=== PATIENT | male | born 1970 | race African-American/Black ===

== ENCOUNTER 2024-07-30 18:57 | Inpatient (IN) | payer BC ==
[~2024-07-30] VITALS: Ht 180.3 cm; Wt 87.3 kg
[2024-07-30] MEDS ORDERED: SIMV10TA20 PO (20:13)
[2024-07-30] MEDS ORDERED: INSU100I51 SC (20:13)
[2024-07-30 20:14] VITALS: PULSE 79; RESP 14; O2SAT 95
[2024-07-30 21:00] VITALS: BP 149/86; PULSE 79; RESP 14; TEMP 97.9; O2SAT 95
[2024-07-30] MEDS ORDERED: MORPHINE SULFATE INJ 2 MG/ml SYRG IV PRN (21:00)
[2024-07-30] MEDS ORDERED: NITROGLYCERIN 0.4 MG SL TAB SL PRN (21:00)
[2024-07-30] MEDS ORDERED: MAALOX PLUS or MAALOX 30 ML GT PRN (21:30)
--- NOTE | 2024-07-30 21:42 | DVHHP2 ---
Admitting Diagnosis: RUQ abdominal pains Patient Family History: Patient reports no known family medical history. Home Meds Reported Medications Simvastatin (Simvastatin) 10 Mg Tab, 1 TAB PO DAILY, #90 TAB 3 Refills 07/30/24 Insulin Aspart (Insulin Aspart Flexpen) 100 Unit/Ml Inj, 100 UNIT SC, INJ 07/30/24 Current Medications Current Medications Medications (Trade) Dose Ordered Sig/Patricia Route PRN Reason Start Time Stop Time Status Last Admin Nitroglycerin (Ntrostat Sublingual) 0.4 mg Q5MINP PRN SL FOR CHEST PAIN 07/30/24 21:00 UNV Morphine Sulfate 2 mg Q30M PRN IV FOR CHEST PAIN 07/30/24 21:00 UNV Diagnostic Test (Pha) (Accu-Chek Comfort Curve T) 1 strip ACHS 07/30/24 22:00 UNV Hydromorphone HCl (Dilaudid Injection) 0.8 mg Q4HP PRN IV SEVERE PAIN (7-10 PAIN SCALE) 07/30/24 21:30 UNV Hydromorphone HCl (Dilaudid Injection) 0.5 mg Q4HP PRN IV Mod severe (3-7/1 PAIN SCALE) 07/30/24 21:30 UNV Cefepime HCl 50 ml @ 12.5 mls/hr Q12HR IV 07/30/24 22:00 UNV Al Hydrox/Mg Hydrox/Simethicone (Maalox Plus) 30 ml Q4HP PRN GT FOR STOMACH DISTRESS 07/30/24 21:30 UNV Sodium Chloride 1,000 ml @ 60 mls/hr [id number] IV 07/30/24 21:30 UNV Vital Signs Vital Signs Date Time Temp Pulse Resp B/P (MAP) Pulse Ox O2 Delivery O2 Flow Rate FiO2 07/30/24 21:00 97.9 79 14 149/86 (107) 95 97.9 ARIADNA CORDOVA MD Jul 30, 2024 21:42
[2024-07-30] MEDS ORDERED: ONDANSETRON HCL 4 MG/2 ML VIAL IV PRN (21:45)
[2024-07-30 22:11] LABS: Basophils % (auto) 0.8 % (0.0-2.0); Eosinophils # (auto) 0.1 10 ^3/uL (0-0.8); Lymphocytes # (auto) 2.9 10 ^3/uL (0.4-5.4); Monocytes # (auto) 0.6 10 ^3/uL (0-1.3); Neutrophils # (auto) 2.5 10 ^3/uL (1.6-8.6); Nucleated Red Blood Cells % 0.1 %; Platelet Count (auto) 240 10^3/uL (140-450); Red Cell Distribution Width 16.2 % (11.8-14.3)
[2024-07-30 22:13] LABS: Basophils # (auto) 0 10 ^3/uL (0-0.2); Eosinophils % (auto) 1.9 % (0.0-7.0); Hematocrit 39.8 % (41.0-53.0); Hemoglobin 12.5 g/dL (13.5-17.5); Lymphocytes % (auto) 47.5 % (10.0-50.0); Mean Corpuscular Hemoglobin 20.1 pg (28.0-32.0); Mean Corpuscular Hgb Conc. 31.5 g/dL (32.0-36.0); Mean Corpuscular Volume 63.6 fL (80.0-100.0); Monocytes % (auto) 9.1 % (0.0-12.0); Neutrophils % (auto) 40.7 % (37.0-80.0); Red Blood Cells 6.25 10^6/uL (4.5-5.90)
[2024-07-30 22:28] LABS: Phosphorus 4.2 mg/dL (2.4-5.1)
[2024-07-30 22:29] LABS: Alanine Aminotransferase 29 U/L (7-40); Albumin 4.5 g/dL (3.2-4.8); Alkaline Phosphatase 51 U/L (46-116); Anion Gap 8 (5-15); Aspartate Aminotransferase 24 U/L (<34); BUN/Creatinine Ratio 17.2 (10.0-20.0); Bilirubin, Total 0.4 mg/dL (0.2-1.0); Blood Urea Nitrogen 16 mg/dL (9-23); Carbon Dioxide 29 mmol/L (20-31); Magnesium 2.3 mg/dL (1.6-2.6); Potassium 4.1 mmol/L (3.5-5.1); Sodium 144 mmol/L (136-145); Total Protein 6.7 g/dL (5.7-8.2)
[2024-07-30 22:32] LABS: Chloride 107 mmol/L (98-107); Glucose 141 mg/dL (74-106)
[2024-07-30] MEDS: ACCU-CHEK COMFORT CURVE STRIP VI SCH (22:50)
--- NOTE | 2024-07-30 22:52 | DVH ---
ABDOMINAL ULTRASOUND CLINICAL HISTORY: r/o cholelithiasis right upper quadrant pain TECHNIQUE: Multiple grayscale and color Doppler ultrasound images were obtained of the abdomen. WID: COMPARISON: None FINDINGS: Liver and Biliary System: Homogeneous echotexture, normal size measuring 14.4 cm. No focal hepatic observations. No intrahepatic bile duct dilatation. The common duct measures 0.5 cm at the naya h epatis. The gallbladder is normal caliber without wall thickening. Pancreas: Visualized portions are unremarkable. Kidneys: The right kidney is 11.1 cm . No hydronephrosis, increased echogenicity, shadowing stone, or focal lesion. IMPRESSION: No acute cholecystitis or biliary ductal dilatation.
[2024-07-30] MEDS: HYDROmorphone HCL 2 MG/ML VL/or syr IV PRN (23:15)
[2024-07-30] MEDS: SOD CHL 0.45% 1,000 ML IV SCH (23:30)
[2024-07-30] MEDS: PANTOPRAZOLE 80 MG in SODIUM CHL 0.9% 100 ML IV ONE (23:40)
[2024-07-30] MEDS: ZOLPIDEM TARTRATE 5 MG TAB PO ONE (23:43)
[2024-07-30] MEDS: PANTOPRAZOLE 40mg/50ML NS AE 100 ML IV ONE (23:49)
[2024-07-31] VITALS (10 sets, daily range): BP systolic 135–152; BP diastolic 82–93; PULSE 70–83; RESP 13–19; TEMP 97.5–98.3; O2SAT 96–100
[2024-07-31] MEDS: CEFEPIME 1GM/ 50ML 50 ML IV SCH (00:07)
[2024-07-31 06:27] LABS: Basophils # (auto) 0 10 ^3/uL (0-0.2); Eosinophils # (auto) 0.2 10 ^3/uL (0-0.8); Lymphocytes % (auto) 48.4 % (10.0-50.0); Monocytes # (auto) 0.5 10 ^3/uL (0-1.3); Nucleated Red Blood Cells % 0.1 %
[2024-07-31 06:30] LABS: Basophils % (auto) 0.6 % (0.0-2.0); Hematocrit 39.5 % (41.0-53.0); Hemoglobin 12.5 g/dL (13.5-17.5); Lymphocytes # (auto) 2.7 10 ^3/uL (0.4-5.4); Mean Corpuscular Hemoglobin 20.2 pg (28.0-32.0); Mean Corpuscular Hgb Conc. 31.7 g/dL (32.0-36.0); Mean Corpuscular Volume 63.8 fL (80.0-100.0); Monocytes % (auto) 9.5 % (0.0-12.0); Neutrophils # (auto) 2.1 10 ^3/uL (1.6-8.6); Neutrophils % (auto) 38.5 % (37.0-80.0); Platelet Count (auto) 219 10^3/uL (140-450); Red Blood Cells 6.19 10^6/uL (4.5-5.90); Red Cell Distribution Width 16.2 % (11.8-14.3); White Blood Cell 5.6 10^3/uL (4.4-10.8)
[2024-07-31 06:51] LABS: Alanine Aminotransferase 30 U/L (7-40); Albumin 4.2 g/dL (3.2-4.8); Alkaline Phosphatase 49 U/L (46-116); Anion Gap 9 (5-15); Aspartate Aminotransferase 22 U/L (<34); BUN/Creatinine Ratio 14.7 (10.0-20.0); Blood Urea Nitrogen 15 mg/dL (9-23); Calcium 9.2 mg/dL (8.7-10.4); Carbon Dioxide 28 mmol/L (20-31); Chloride 105 mmol/L (98-107); Glucose 90 mg/dL (74-106); Potassium 4.2 mmol/L (3.5-5.1); Sodium 142 mmol/L (136-145); Total Protein 6.5 g/dL (5.7-8.2)
[2024-07-31 06:52] LABS: Bilirubin, Total 0.5 mg/dL (0.2-1.0)
[2024-07-31 07:03] LABS: Triglycerides 76 mg/dL (< 150)
[2024-07-31 07:04] LABS: LDL Cholesterol 58 mg/dL (< 100)
[2024-07-31 07:05] LABS: Cholesterol 100 mg/dL (< 200)
[2024-07-31 07:07] LABS: HDL Cholesterol 26 mg/dL (40-59)
[2024-07-31 08:33] LABS: Urine Bacteria None Seen /hpf (None Seen)
[2024-07-31 08:45] LABS: Urine Blood Negative /uL (Negative); Urine Clarity Clear (Clear); Urine Color Yellow (Yellow); Urine Protein, UAD Negative (Negative); Urine Specific Gravity 1.022 (1.001-1.035); Urine Squamous Epithelial Cell FEW /hpf (<5); Urine Urobilinogen Normal (Negative)
[2024-07-31] MEDS ORDERED: NALOXONE HCL 0.4 MG/ML VIAL ONE (09:21)
[2024-07-31] MEDS ORDERED: FLUMAZENIL 0.1 MG/ML INJ 10ML MDV IV ONE (09:22)
[2024-07-31] MEDS ORDERED: SIMETHICONE 40 MG/0.6 ML ORAL DROP ONE (09:22)
[2024-07-31] MEDS ORDERED: SODIUM CHLORIDE LOCK 10 ML ONE (09:22)
[2024-07-31] MEDS ORDERED: diphenhdrAMINE HCL 50 MG/1 ML VL ONE (09:23)
[2024-07-31] MEDS: LIDOCAINE VISCOUS 2% 15ML UD ONE (09:35)
--- NOTE | 2024-07-31 09:35 | DVH ---
EXAMINATION: XY R RIB XRAY INDICATION: R side rib cage pains COMPARISON: None TECHNIQUE: Frontal view of the chest and 4 views of the right ribs history FINDINGS: No focal consolidation, pleural effusion or significant pneumothorax. Normal cardiomediastinal silhou ette. No displaced right rib fracture. IMPRESSION: No acute cardiopulmonary disease. No displaced right rib fracture.
[2024-07-31] MEDS: MIDAZOLAM HCL 5 MG/ML-1ML VIAL ONE (09:38)
[2024-07-31] MEDS: fentaNYL CITRATE 100 MCG/2 ML VL ONE (09:38)
--- NOTE | 2024-07-31 10:01 | DVHINCON2 ---
Date of service: Jul 31, [address] westfall Reason for Consultation Abdominal pain right upper quadrant nausea anorexia history of anemia in the past No hematemesis or melena Had some dark stools in the past but none Was on iron pills in the past History of Present Illness 54-year-old Male Abdominal pain right upper quadrant nausea anorexia history of anemia in the past No hematemesis or melena Had some dark stools in the past but none Was on iron pills in the past Past Medical History History of diabetes History of Pancreatitis in the past Past Surgical History None Family History: Patient reports no known family medical history. Family History Noncontributory Social History Denies smoking or drinking Allergies: Coded Allergies: No Known Drug Allergy (Verified Allergy, Unknown, 07/30/24) Home Meds Reported Medications Simvastatin (Simvastatin) 10 Mg Tab, 1 TAB PO DAILY, #90 TAB 3 Refills 07/30/24 Insulin Aspart (Insulin Aspart Flexpen) 100 Unit/Ml Inj, 100 UNIT SC, INJ 07/30/24 Current Medications Current Medications Medications (Trade) Dose Ordered Sig/Patricia Route PRN Reason Start Time Stop Time Status Last Admin Nitroglycerin (Ntrostat Sublingual) 0.4 mg Q5MINP PRN SL FOR CHEST PAIN 07/30/24 21:00 Morphine Sulfate 2 mg Q30M PRN IV FOR CHEST PAIN 07/30/24 21:00 Diagnostic Test (Pha) (Accu-Chek Comfort Curve T) 1 strip ACHS 07/30/24 22:00 07/31/24 06:19 Hydromorphone HCl (Dilaudid Injection) 0.8 mg Q4HP PRN IV SEVERE PAIN (7-10 PAIN SCALE) 07/30/24 21:30 Hydromorphone HCl (Dilaudid Injection) 0.5 mg Q4HP PRN IV Mod severe (3-7/1 PAIN SCALE) 07/30/24 21:30 07/31/24 09:03 Cefepime HCl 50 ml @ 12.5 mls/hr Q12HR IV 07/30/24 22:00 07/31/24 00:07 Al Hydrox/Mg Hydrox/Simethicone (Maalox Plus) 30 ml Q4HP PRN GT FOR STOMACH DISTRESS 07/30/24 21:30 Sodium Chloride 1,000 ml @ 60 mls/hr [id number] IV 07/30/24:30 07/30/24 23:30 Ondansetron HCl (Zofran) 4 mg Q6HPRN PRN IV N/V/Hiccough 07/30/24 21:45 Zolpidem Tartrate (Ambien) 10 mg HSPRN PRN PO FOR INSOMNIA 07/30/24 21:45 Review of Systems Noncontributory Vital Signs Vital Signs Date Time Temp Pulse Resp B/P (MAP) Pulse Ox O2 Delivery O2 Flow Rate FiO2 07/31/24 09:03 70 18 152/84 07/31/24 09:00 98.0 96 98.0 07/30/24 20:14 Room Air* 0 21 Physical Exam Moderately built and nourished male in no acute distress Vital signs stable HEENT examination no pallor no icterus Neck is supple no lymphadenopathy or thyromegaly Chest bilaterally symmetrical lungs are clear Cardiovascular unremarkable Abdomen is soft tenderness in the right upper quadrant and epigastrium mildly No rigidity no guarding no masses Bowel sounds eriberto Extremities no edema Neuro grossly intact Labs/Diagnostic Data Labs Test 07/31/24 07:40 07/31/24 05:38 07/31/24 00:56 07/30/24 22:54 Range/Units Urine Color Yellow Yellow Urine Clarity Clear Clear Urine pH 7.0 5.0-9.0 Urine Specific [place] 1.022 1.001-1.035 Urine Protein Negative Negative Urine Ketones Negative Negative Urine Blood Negative Negative /uL Urine Nitrite Negative Negative Urine Bilirubin Negative Negative Urine Urobilinogen Normal Negative mg/dL Urine Leukocyte Esterase Negative Negative /uL Urine RBC None seen 0 - 3 /hpf Urine Microscopic WBC 0-3 /HPF Urine Squamous Epithelial Cells Few <5 /hpf Urine Bacteria None seen None Seen /hpf Urine Glucose 4+ H Normal mg/dL White Blood Count 5.6 4.4-10.8 10^3/uL Red Blood Count 6.19 H 4.5-5.90 10^6/uL Hemoglobin 12.5 L 13.5-17.5 g/dL Hematocrit 39.5 L 41.0-53.0 % Mean Corpuscular Volume 63.8 L 80.0-100.0 fL Mean Corpuscular Hemoglobin 20.2 L 28.0-32.0 pg Mean Corpuscular Hemoglobin Concent 31.7 L 32.0-36.0 g/dL Red Cell Distribution Width 16.2 H 11.8-14.3 % Platelet Count 219 140-450 10^3/uL Mean Platelet Volume 8.5 6.9-10.8 fL Neutrophils (%) (Auto) 38.5 37.0-80.0 % Lymphocytes (%) (Auto) 48.4 10.0-50.0 % Monocytes (%) (Auto) 9.5 0.0-12.0 % Eosinophils (%) (Auto) 3.0 0.0-7.0 % Basophils (%) (Auto) 0.6 0.0-2.0 % Neutrophils # (Auto) 2.1 1.6-8.6 10 ^3/uL Lymphocytes # (Auto) 2.7 0.4-5.4 10 ^3/uL Monocytes # (Auto) 0.5 0-1.3 10 ^3/uL Eosinophils # (Auto) 0.2 0-0.8 10 ^3/uL Basophils # (Auto) 0 0-0.2 10 ^3/uL Nucleated Red Blood Cells 0.1 % Sodium Level 142 136-145 mmol/L Potassium Level 4.2 3.5-5.1 mmol/L Chloride Level 105 98-107 mmol/L Carbon Dioxide Level 28 20-31 mmol/L Anion Gap 9 5-15 Blood Urea Nitrogen 15 9-23 mg/dL Creatinine 1.02 0.700-1.30 mg/dL Glomerular Filtration Rate Calc 87 >90 mL/min BUN/Creatinine Ratio 14.7 10.0-20.0 Serum Glucose 90 74-106 mg/dL Calcium Level 9.2 8.7-10.4 mg/dL Total Bilirubin 0.5 0.2-1.0 mg/dL Aspartate Amino Transferase (AST) 22 <34 U/L Alanine Aminotransferase (ALT) 30 7-40 U/L Alkaline Phosphatase 49 46-116 U/L Total Protein 6.5 5.7-8.2 g/dL Albumin 4.2 3.2-4.8 g/dL Triglycerides Level 76 < 150 mg/dL Cholesterol Level 100 < 200 mg/dL LDL Cholesterol 58 < 100 mg/dL HDL Cholesterol 26 L 40-59 mg/dL Troponin I High Sensitivity 3 L </=54 ng/L POC Glucose 162 H 70-106 mg/dl Test 07/30/24 21:41 Range/Units D-Dimer, Quantitative < 0.19 0.0-0.49 mg/L FEU Hemoglobin A1c 6.9 H <5.7 % A1C Phosphorus Level 4.2 2.4-5.1 mg/dL Magnesium Level 2.3 1.6-2.6 mg/dL Amylase Level 64 30-118 U/L Lipase 14 12-53 U/L Assessment 54-year-old male With complaints of abdominal pain in the right upper quadrant nausea anorexia History of diabetes Labs unremarkable except for slightly increased glucose, white count hemoglobin LFTs and lipase normal Ultrasound showed no gross abnormalities of the gallbladder Clinical impression Patient with diabetes with right upper quadrant pain undetermined etiology no history of any trauma or other pathology Gallbladder studies negative for stones Possibility of an ulcer disease or other pathology can not be excluded Colon Lesion also could be in the differential diagnosis though no much lower GI symptoms at this time Acalculous cholecystitis also has to be ruled out Plan/Recommendation Recommend EGD evaluation to rule out any ulcers or other pathology If EGD unremarkable we will also do HIDA scan to ensure there was no acalculous cholecystitis May also need a colon evaluation and CT scan abdomen if not done recently to evaluate for the etiology of the pain Thank you Dr. Pearson Plan discussed with: Patient TAHMINA PEARSON MD Jul 31, 2024 10:00
--- NOTE | 2024-07-31 10:11 | DVHOP2 ---
Operative Report DATE OF PROCEDURE: 07/31/24 INDICATIONS FOR THE PROCEDURE: Abdominal pain nausea heartburn anorexia history of diabetes PROCEDURE PERFORMED: 1. Esophagogastroduodenoscopy biopsy POSTOPERATIVE DIAGNOSIS: Small hiatal hernia Mild esophagitis LA classification C No strictures no ulcers no varices no bleeding seen Mild gastritis in the antrum Gastroparesis with gastric stasis and small gastric bezoar INFORMED CONSENT: The risks and benefits and alternatives were explained to the patient and informed consent was obtained. PROCEDURE IN DETAIL: The patient was kept NPO after midnight. In the endoscopy room, he was given IV fentanyl family and Versed, 3 mg titrated slowly to get him sedated. Olympus gastroscope was passed through the oropharynx into the stomach and the duodenum, and the findings were as follows. Esophagus: 1 Cm hiatal hernia Esophagitis classification C No Esophageal varices No Esophageal stricture Stomach: Fundus: Gastroparesis with gastric stasis early gastric bezoar occupying the fundus and upper body Body and antrum mild antral gastritis biopsies taken to ensure there was no H pylori or other pathology Pylorus normal Duodenum Unremarkable but biopsies taken to ensure there is no other pathology like celiac disease because of the pain in the right upper quadrant Endoscopic impression Small hiatal hernia Mild esophagitis LA classification C No strictures no ulcers no varices no bleeding seen Mild gastritis in the antrum Gastroparesis with gastric stasis and small gastric bezoar Suggestions Await Biopsy results Six small frequent meals Monitor the blood sugars closely maintain well A1c and the the sugars HIDA scan to rule out any acalculous cholecystitis because of the right upper quadrant pain Abdomen MRI especially with a history of pancreatitis in the past Stool for occult blood Depending on the MRI and HIDA scan may need further evaluation including colon evaluation as necessary Thank you Dr. Tavares for asking me to take part in the care of this pleasant patient TAHMINA Martinez MD Jul 31, 2024 10:11
[2024-07-31] MEDS: HYDROmorphone HCL 2 MG/ML VL/or syr IV PRN (12:45)
--- NOTE | 2024-07-31 13:01 | DVH ---
PROCEDURE: MRI MRI ABDOMEN NO CONTRAST Indication: RIGHT ABDOMINAL PAIN COMPARISON: None TECHNIQUE: Multiplanar multisequence images of the abdomen are obtained. FINDINGS: Tiny bilateral pleural effusions. Adrenal glands, spleen unremarkable in shape. No evidence for cholelithiasis. No T2 hyperintense lesi ons in the liver. The left kidney demonstrates [id number] left hydroureteronephrosis. Pancreatic parenchymal atrophy with ductal dilatation up to 11 mm common bile duct visually nondilate d measures approximately 2 mm. Stomach is moderately distended. Imaged small bowel loops normal in caliber. IMPRESSION: [id number] left hydroureteronephrosis. Recommend dedicated CT abdomen pelvis with and without contrast to evaluate. Severe parenchymal atrophy with pancreatic ductal dilatation up to 11 mm, possibly secondary to ex va cuo dilatation. Correlate with risk factors and lab values to exclude a nonobstructing underlying pa ncreatic process. Tiny bilateral pleural effusions. Other findings as described.
--- NOTE | 2024-07-31 15:17 | DVHPN2 ---
Progress Note - Dictate Date Seen: Jul 31, 2024 Subjective EGD- gastroparesis US abdomen- no cholelithiasis MRI- hydronephrosis refer to urologist vital signs Vital Sign Date Time Temp Pulse Resp B/P (MAP) Pulse Ox O2 Delivery O2 Flow Rate FiO2 07/31/24 13:15 76 19 148/89 07/31/24 10:30 97 07/31/24 09:55 Mask 3.0 98 07/31/24 09:55 97.1 97.1 Total Intake and Output 07/30/24 07/30/24 07/31/24 15:00 23:00 07:00 Intake Total 0 ml Balance 0 ml medications Current Medications Medications Dose Ordered Sig/Patricia Route Start Time Stop Time Status Last Admin Dose Admin Nitroglycerin 0.4 mg Q5MINP PRN SL 07/30/24 21:00 Morphine Sulfate 2 mg Q30M PRN IV 07/30/24 21:00 Diagnostic Test (Pha) 1 strip ACHS 07/30/24 22:00 07/31/24 11:50 1 STRIP Hydromorphone HCl 0.8 mg Q4HP PRN IV 07/30/24 21:30 07/31/24 12:45 0.8 MG Hydromorphone HCl 0.5 mg Q4HP PRN IV 07/30/24 21:30 07/31/24 09:03 0.5 MG Cefepime HCl 50 ml @ 12.5 mls/hr Q12HR IV 07/30/24 22:00 07/31/24 12:37 12.5 MLS/HR Al Hydrox/Mg Hydrox/Simethicone 30 ml Q4HP PRN GT 07/30/24 21:30 Sodium Chloride 1,000 ml @ 60 mls/hr [id number] IV 07/30/24 21:30 07/30/24 23:30 60 MLS/HR Ondansetron HCl 4 mg Q6HPRN PRN IV 07/30/24 21:45 Zolpidem Tartrate 10 mg HSPRN PRN PO 07/30/24 21:45 laboratory and microbiology Laboratory Tests 07/31/24 05:38 Test 07/31/24 05:38 Range/Units Serum Glucose 90 74-106 mg/dL Problem List L sided hydronephrosis Gastroparesis Assessment/Plan Refer to Dr. Larry starr- d/w ARIADNA Sepulveda MD Jul 31, 2024 15:17
--- NOTE | 2024-07-31 17:19 | DVHINCON2 ---
Date of service: Jul 31, [address] Tavares Reason for Consultation Left hydronephrosis History of Present Illness History Source: Patient, RN Notes, MD Notes Exam Limitations: No limitations HPI 54 year old male admitted to hospital for RUQ pain. MRI showed left moderate hydronephrosis. Bladder and distal ureters not visualized on MRI exam, therefore CT A/P ordered, which shows persistent right sided hydro. No obvious calculi. Bladder is distended, awaiting radiology report. Patient denies flank pain, fever, nausea, vomiting. No prior history of urinary difficulties or urinary disease. Patient was examined in 216b with family at bedside. Home Meds Reported Medications Simvastatin (Simvastatin) 10 Mg Tab, 1 TAB PO DAILY, #90 TAB 3 Refills 07/30/24 Insulin Aspart (Insulin Aspart Flexpen) 100 Unit/Ml Inj, 100 UNIT SC, INJ 07/30/24 Past Medical History Patient Family History: Patient reports no known family medical history. Review of Systems Constitutional: No symptom reported Ears, Nose, & Throat: No symptom reported Eyes: No symptom reported Pulmonary/Respiratory: No symptom reported Cardiovascular: No symptom reported Gastrointestinal: No symptom reported Genitourinary: No symptom reported Musculoskeletal: No symptom reported Skin: No symptom reported Psychiatric: No symptom reported Endocrine: No symptom reported Hemotologic/Lymphatic: No symptom reported H&P Exam Vital Signs Vital Signs Date Time Temp Pulse Resp B/P (MAP) Pulse Ox O2 Delivery O2 Flow Rate FiO2 07/31/24 13:15 76 19 148/89 07/31/24 13:00 97.8 97 97.8 07/31/24 09:55 Mask 3.0 98 General Appeara: Well developed, Well nourished, Normal Appearance Head Exam: Normal inspection Neuro/Mental St: Alert, Oriented Appearance: Appropriate appearance, Appropriate insight Eye contact/ Speech: Cooperative, Good eye contact, Normal speech Skin Exam: Normal inspection, Normal color, Warm/dry Labs/Xrays [id number] [facility] [address] Ph: [phone] DIAGNOSTIC IMAGING Diagnostic Imaging Report : [id number] Signed PATIENT: AUSTYN CLEMENTS ACCT: [id number] UNIT: [id number] : 1970 LOC[facility]GE / SEX: 54 / M ADM STATUS: ADM IN SERVICE 1017 ORDERING PHYSICIAN: TAHMINA NICHOLS MD PROCEDURE(s): MABL - MRI ABDOMEN NO CONTRAST REASON: RIGHT ABDOMINAL PAIN ORDER NUMBER(s): [id number], ACCESSION NUMBER(s): [id number] PROCEDURE: MRI MRI ABDOMEN NO CONTRAST Indication: RIGHT ABDOMINAL PAIN COMPARISON: None TECHNIQUE: Multiplanar multisequence images of the abdomen are obtained. FINDINGS: Tiny bilateral pleural effusions. Adrenal glands, spleen unremarkable in shape. No evidence for cholelithiasis. No T2 hyperintense lesions in the liver. The left kidney demonstrates [id number] left hydroureteronephrosis. Pancreatic parenchymal atrophy with ductal dilatation up to 11 mm common bile duct visually nondilated measures approximately 2 mm. Stomach is moderately distended. Imaged small bowel loops normal in caliber. IMPRESSION: [id number] left hydroureteronephrosis. Recommend dedicated CT abdomen pelvis with and without contrast to evaluate. Severe parenchymal atrophy with pancreatic ductal dilatation up to 11 mm, possibly secondary to ex vacuo dilatation. Correlate with risk factors and lab values to exclude a nonobstructing underlying pancreatic process. Tiny bilateral pleural effusions. Other findings as described. ATED BY: LELE ESTEVES MD DICTATED DATE/TIME: 07/31/24 1259 SIGNED BY: LELE ESTEVES MD SIGNED DATE/TIME: 07/31/24 1259 CC: Labs Test 07/31/24 16:44 07/31/24 07:40 07/31/24 05:38 07/31/24 00:56 Range/Units POC Glucose 119 H 70-106 mg/dl Urine Color Yellow Yellow Urine Clarity Clear Clear Urine pH 7.0 5.0-9.0 Urine Specific [place] 1.022 1.001-1.035 Urine Protein Negative Negative Urine Ketones Negative Negative Urine Blood Negative Negative /uL Urine Nitrite Negative Negative Urine Bilirubin Negative Negative Urine Urobilinogen Normal Negative mg/dL Urine Leukocyte Esterase Negative Negative /uL Urine RBC None seen 0 - 3 /hpf Urine Microscopic WBC 0-3 /HPF Urine Squamous Epithelial Cells Few <5 /hpf Urine Bacteria None seen None Seen /hpf Urine Glucose 4+ H Normal mg/dL White Blood Count 5.6 4.4-10.8 10^3/uL Red Blood Count 6.19 H 4.5-5.90 10^6/uL Hemoglobin 12.5 L 13.5-17.5 g/dL Hematocrit 39.5 L 41.0-53.0 % Mean Corpuscular Volume 63.8 L 80.0-100.0 fL Mean Corpuscular Hemoglobin 20.2 L 28.0-32.0 pg Mean Corpuscular Hemoglobin Concent 31.7 L 32.0-36.0 g/dL Red Cell Distribution Width 16.2 H 11.8-14.3 % Platelet Count 219 140-450 10^3/uL Mean Platelet Volume 8.5 6.9-10.8 fL Neutrophils (%) (Auto) 38.5 37.0-80.0 % Lymphocytes (%) (Auto) 48.4 10.0-50.0 % Monocytes (%) (Auto) 9.5 0.0-12.0 % Eosinophils (%) (Auto) 3.0 0.0-7.0 % Basophils (%) (Auto) 0.6 0.0-2.0 % Neutrophils # (Auto) 2.1 1.6-8.6 10 ^3/uL Lymphocytes # (Auto) 2.7 0.4-5.4 10 ^3/uL Monocytes # (Auto) 0.5 0-1.3 10 ^3/uL Eosinophils # (Auto) 0.2 0-0.8 10 ^3/uL Basophils # (Auto) 0 0-0.2 10 ^3/uL Nucleated Red Blood Cells 0.1 % Sodium Level 142 136-145 mmol/L Potassium Level 4.2 3.5-5.1 mmol/L Chloride Level 105 98-107 mmol/L Carbon Dioxide Level 28 20-31 mmol/L Anion Gap 9 5-15 Blood Urea Nitrogen 15 9-23 mg/dL Creatinine 1.02 0.700-1.30 mg/dL Glomerular Filtration Rate Calc 87 >90 mL/min BUN/Creatinine Ratio 14.7 10.0-20.0 Serum Glucose 90 74-106 mg/dL Calcium Level 9.2 8.7-10.4 mg/dL Total Bilirubin 0.5 0.2-1.0 mg/dL Aspartate Amino Transferase (AST) 22 <34 U/L Alanine Aminotransferase (ALT) 30 7-40 U/L Alkaline Phosphatase 49 46-116 U/L Total Protein 6.5 5.7-8.2 g/dL Albumin 4.2 3.2-4.8 g/dL Triglycerides Level 76 < 150 mg/dL Cholesterol Level 100 < 200 mg/dL LDL Cholesterol 58 < 100 mg/dL HDL Cholesterol 26 L 40-59 mg/dL Troponin I High Sensitivity 3 L </=54 ng/L Test 07/30/24 21:41 Range/Units D-Dimer, Quantitative < 0.19 0.0-0.49 mg/L FEU Hemoglobin A1c 6.9 H <5.7 % A1C Phosphorus Level 4.2 2.4-5.1 mg/dL Magnesium Level 2.3 1.6-2.6 mg/dL Amylase Level 64 30-118 U/L Lipase 14 12-53 U/L Assessment/Plan Problem List: (1) Hydronephrosis due to obstruction of ureter Plan Await results of CT. If unable to void or PVR >300 mL recommend Bermudez catheter. Plan discussed with: Patient, Spouse, Daughter, Son VEGA MARINO NP Jul 31, 2024 17:19
--- NOTE | 2024-07-31 19:40 | DVH ---
Exam: CT CT AB PEL WO CON-NO ORAL OR IV History: hydronephrosis Comparison Study: None TECHNIQUE: Multidetector CT of the abdomen was performed from lung bases to pubic symphysis. Imaging was performed without IV contrast. Axial, coronal and sagittal multiplanar reformats were obtained fr om the axial data set by the technologist. Radiation Dose Information: CT Dose: CTDI volume is 10.6 mGy. Dose-length product is 587.77 mGy*cm FINDINGS: Evaluation of solid organs is limited due to lack of intravenous contrast use. Findings: Lung Bases: No acute or significant lung base finding. Normal heart size. No pleural or pericardial effusion. Liver: The liver is normal in size. No focal lesions. Gallbladder and Biliary Tree: Unremarkable Spleen: Unremarkable Pancreas: Multiple calcifications in the pancreas suggesting chronic pancreatitis. Adrenal Glands: Unremarkable Kidneys: Hydronephrosis left kidney Bladder: Grossly unremarkable for degree of distention. Bowel: The stomach is grossly normal in appearance. Small bowel and colon are normal in caliber and d istribution. The appendix is not visualized; however, no secondary findings of acute appendicitis id entified. Ascites: Absent Lymphadenopathy: No mesenteric, retroperitoneal or periportal lymphadenopathy. Abdominal Wall and Mesentery: Unremarkable. Vasculature: The visualized abdominal aorta is normal in size and caliber. Evaluation of abdominal a nd pelvic vessels is limited due to lack of intravenous contrast. Pelvic Organs: Unremarkable Musculoskeletal: No aggressive focal bony lesions, acute fractures or dislocation. Soft tissues: Unremarkable IMPRESSION: 1. Hydronephrosis left kidney with a 6 mm calculus in the distal left ureter. 2. Changes in the pancreas suggesting chronic pancreatitis. 3. No calcified gallstones 4. Straightening of the normal lumbar lordotic curve which may be secondary to patient positioning or muscle spasm. Radiation optimization: All CT scans at this facility use at least one of these dose optimization karl hniques: automated exposure control mA and/or kV adjustment per patient size (includes targeted exam s where dose is matched to clinical indication) or iterative reconstruction.
[2024-07-31] MEDS: ZOLPIDEM TARTRATE 5 MG TAB PO PRN (22:04)
[2024-08-01] VITALS (9 sets, daily range): BP systolic 138–161; BP diastolic 83–98; PULSE 76–93; RESP 17–18; TEMP 96.7–98.5; O2SAT 97–99
--- NOTE | 2024-08-01 11:27 | DVHPN2 ---
Progress Note - Dictate Date Seen: Aug 01, 2024 Has the PT tested + for MRSA If YES, has PT been informed?: No Medical Necessity Reason Pt with a Central, PICC or Fol: No Subjective Patient with still right upper quadrant pain close to the ribs the review x-rays are normal CT scan of the MRI showed some mild chronic pancreatitis no stones or other pathology Lipase and liver enzymes are normal vital signs Vital Sign Date Time Temp Pulse Resp B/P (MAP) Pulse Ox O2 Delivery O2 Flow Rate FiO2 08/01/24 10:06 93 18 161/98 08/01/24 09:00 96.7 97 96.7 08/01/24 08:00 Room Air* 0 21 Total Intake and Output 07/31/24 07/31/24 08/01/24 15:00 23:00 07:00 Intake Total 750 ml 425 ml Balance 750 ml 425 ml medications Current Medications Medications Dose Ordered Sig/Patricia Route Start Time Stop Time Status Last Admin Dose Admin Nitroglycerin 0.4 mg Q5MINP PRN SL 07/30/24 21:00 Morphine Sulfate 2 mg Q30M PRN IV 07/30/24 21:00 Diagnostic Test (Pha) 1 strip ACHS 07/30/24 22:00 07/31/24 21:53 1 STRIP Hydromorphone HCl 0.8 mg Q4HP PRN IV 07/30/24 21:30 08/01/24 10:06 0.8 MG Hydromorphone HCl 0.5 mg Q4HP PRN IV 07/30/24 21:30 08/01/24 01:50 0.5 MG Cefepime HCl 50 ml @ 12.5 mls/hr Q12HR IV 07/30/24 22:00 08/01/24 09:40 12.5 MLS/HR Al Hydrox/Mg Hydrox/Simethicone 30 ml Q4HP PRN GT 07/30/24 21:30 Sodium Chloride 1,000 ml @ 60 mls/hr [id number] IV 07/30/24 21:30 07/31/24 15:26 60 MLS/HR Ondansetron HCl 4 mg Q6HPRN PRN IV 07/30/24 21:45 Zolpidem Tartrate 10 mg HSPRN PRN PO 07/30/24 21:45 07/31/24 22:04 10 MG objective Abdomen is soft mild nonspecific tenderness close to the ribs in the right upper quadrant No Rigidity no guarding laboratory and microbiology Laboratory Tests 07/31/24 05:38 Test 07/31/24 05:38 Range/Units Serum Glucose 90 74-106 mg/dL Assessment/Plan 54-year-old male With complaints of abdominal pain in the right upper quadrant nausea anorexia History of diabetes Labs unremarkable except for slightly increased glucose, white count hemoglobin LFTs and lipase normal Ultrasound showed no gross abnormalities of the gallbladder Clinical impression Patient with diabetes with right upper quadrant pain undetermined etiology no history of any trauma or other pathology Gallbladder studies negative for stones NRI and CT chronic pancreatitis Possibility of an ulcer disease or other pathology can not be excluded Colon Lesion also could be in the differential diagnosis though no much lower GI symptoms at this time Acalculous cholecystitis also has to be ruled out two HIDA scan If symptoms persist may need further workup including colon evaluation etc. Thank you Dr. Michel Conti discussed with: Patient TAHMINA NICHOLS MD Aug 01, 2024 11:27
--- NOTE | 2024-08-01 11:36 | DVHPN2 ---
Progress Note - Dictate Date Seen: Aug 01, 2024 Has the PT tested + for MRSA If YES, has PT been informed?: No Medical Necessity Reason Pt with a Central, PICC or Fol: No Subjective CT abdomen- distal ureter calculus seen w Dr Pearson ordered Hida- R/o acalculus cholecystitis referred to urologist- DR Starr vital signs Vital Sign Date Time Temp Pulse Resp B/P (MAP) Pulse Ox O2 Delivery O2 Flow Rate FiO2 08/01/24 10:06 93 18 161/98 08/01/24 09:00 96.7 97 96.7 08/01/24 08:00 Room Air* 0 21 Total Intake and Output 07/31/24 07/31/24 08/01/24 15:00 23:00 07:00 Intake Total 750 ml 425 ml Balance 750 ml 425 ml medications Current Medications Medications Dose Ordered Sig/Patricia Route Start Time Stop Time Status Last Admin Dose Admin Nitroglycerin 0.4 mg Q5MINP PRN SL 07/30/24 21:00 Morphine Sulfate 2 mg Q30M PRN IV 07/30/24 21:00 Diagnostic Test (Pha) 1 strip ACHS 07/30/24 22:00 07/31/24 21:53 1 STRIP Hydromorphone HCl 0.8 mg Q4HP PRN IV 07/30/24 21:30 08/01/24 10:06 0.8 MG Hydromorphone HCl 0.5 mg Q4HP PRN IV 07/30/24 21:30 08/01/24 01:50 0.5 MG Cefepime HCl 50 ml @ 12.5 mls/hr Q12HR IV 07/30/24 22:00 08/01/24 09:40 12.5 MLS/HR Al Hydrox/Mg Hydrox/Simethicone 30 ml Q4HP PRN GT 07/30/24 21:30 Sodium Chloride 1,000 ml @ 60 mls/hr [id number] IV 07/30/24 21:30 07/31/24 15:26 60 MLS/HR Ondansetron HCl 4 mg Q6HPRN PRN IV 07/30/24 21:45 Zolpidem Tartrate 10 mg HSPRN PRN PO 07/30/24 21:45 07/31/24 22:04 10 MG Insulin Human Lispro AC SC 08/01/24 11:30 UNV Insulin Human Lispro HS SC 08/01/24 22:00 UNV laboratory and microbiology Laboratory Tests 07/31/24 05:38 Test 07/31/24 05:38 Range/Units Serum Glucose 90 74-106 mg/dL Problem List L sided hydronephrosis Gastroparesis Assessment/Plan Refer to Dr. Larry starr- d/w ARIADNA Sepulveda MD Aug 01, 2024 11:36
[2024-08-01] MEDS: INSULIN LISPRO (HUMAN) 100 UNITS/ML ML SC SCH ×2 (11:48→22:38)
[2024-08-01 12:23] LABS: Basophils # (auto) 0 10 ^3/uL (0-0.2); Basophils % (auto) 0.6 % (0.0-2.0); Neutrophils # (auto) 3.1 10 ^3/uL (1.6-8.6); Red Cell Distribution Width 16.2 % (11.8-14.3)
[2024-08-01 12:24] LABS: Eosinophils # (auto) 0.1 10 ^3/uL (0-0.8); Hematocrit 42.1 % (41.0-53.0); Hemoglobin 13.3 g/dL (13.5-17.5); Lymphocytes # (auto) 1.7 10 ^3/uL (0.4-5.4); Lymphocytes % (auto) 32.4 % (10.0-50.0); Mean Corpuscular Hemoglobin 20.2 pg (28.0-32.0); Mean Corpuscular Hgb Conc. 31.7 g/dL (32.0-36.0); Mean Corpuscular Volume 63.7 fL (80.0-100.0); Monocytes # (auto) 0.4 10 ^3/uL (0-1.3); Monocytes % (auto) 7.8 % (0.0-12.0); Neutrophils % (auto) 58.2 % (37.0-80.0); Platelet Count (auto) 230 10^3/uL (140-450); Red Blood Cells 6.62 10^6/uL (4.5-5.90); White Blood Cell 5.4 10^3/uL (4.4-10.8)
[2024-08-01 12:41] LABS: INR 1.15 (0.9-1.15); Partial Thromboplastin Time 28.9 SEC (24.5-34.5)
[2024-08-01 12:42] LABS: Alanine Aminotransferase 26 U/L (7-40); Albumin 4.5 g/dL (3.2-4.8); Alkaline Phosphatase 55 U/L (46-116); Anion Gap 9 (5-15); Aspartate Aminotransferase 20 U/L (<34); BUN/Creatinine Ratio 17.6 (10.0-20.0); Bilirubin, Total 0.5 mg/dL (0.2-1.0); Blood Urea Nitrogen 18 mg/dL (9-23); Calcium 9.9 mg/dL (8.7-10.4); Carbon Dioxide 26 mmol/L (20-31); Chloride 101 mmol/L (98-107); Potassium 4.3 mmol/L (3.5-5.1); Sodium 136 mmol/L (136-145); Total Protein 6.9 g/dL (5.7-8.2)
[2024-08-01 12:47] LABS: Glucose 211 mg/dL (74-106)
--- NOTE | 2024-08-01 13:50 | DVHPN2 ---
Progress Note - Dictate Date Seen: Aug 01, 2024 Has the PT tested + for MRSA If YES, has PT been informed?: No Medical Necessity Reason Pt with a Central, PICC or Fol: No vital signs Vital Sign Date Time Temp Pulse Resp B/P (MAP) Pulse Ox O2 Delivery O2 Flow Rate FiO2 08/01/24 13:00 97.9 78 18 156/91 (112) 99 97.9 08/01/24 08:00 Room Air* 0 21 Total Intake and Output 07/31/24 07/31/24 08/01/24 15:00 23:00 07:00 Intake Total 750 ml 425 ml Balance 750 ml 425 ml medications Current Medications Medications Dose Ordered Sig/Patricia Route Start Time Stop Time Status Last Admin Dose Admin Nitroglycerin 0.4 mg Q5MINP PRN SL 07/30/24 21:00 Morphine Sulfate 2 mg Q30M PRN IV 07/30/24 21:00 Diagnostic Test (Pha) 1 strip ACHS 07/30/24 22:00 08/01/24 11:42 1 STRIP Hydromorphone HCl 0.8 mg Q4HP PRN IV 07/30/24 21:30 08/01/24 10:06 0.8 MG Hydromorphone HCl 0.5 mg Q4HP PRN IV 07/30/24 21:30 08/01/24 01:50 0.5 MG Cefepime HCl 50 ml @ 12.5 mls/hr Q12HR IV 07/30/24 22:00 08/01/24 09:40 12.5 MLS/HR Al Hydrox/Mg Hydrox/Simethicone 30 ml Q4HP PRN GT 07/30/24 21:30 Sodium Chloride 1,000 ml @ 60 mls/hr [id number] IV 07/30/24 21:30 07/31/24 15:26 60 MLS/HR Ondansetron HCl 4 mg Q6HPRN PRN IV 07/30/24 21:45 Zolpidem Tartrate 10 mg HSPRN PRN PO 07/30/24 21:45 07/31/24 22:04 10 MG Insulin Human Lispro AC SC 08/01/24 11:30 08/01/24 11:48 4 UNITS Insulin Human Lispro HS SC 08/01/24 22:00 Valsartan 160 mg DAILY PO 08/02/24 10:00 objective pt is off unit for HIDA scan his in the room states he has still been very uncomfortable. laboratory and microbiology Laboratory Tests 08/01/24 11:58 Test 08/01/24 11:58 Range/Units Serum Glucose 211 #H 74-106 mg/dL Assessment/Plan NPO cysto with stent placement and ESWL TBA Problems(with codes): (1) Colicky RUQ abdominal pain (2) Hydronephrosis due to obstruction of ureter (3) Hydronephrosis with renal and ureteral calculous obstruction Plan discussed with: Spouse, Other Total Time (mins): 15 VEGA MARINO [employer] Aug 01, 2024 13:49
[2024-08-01] MEDS ORDERED: CIPROFLOXACIN 400MG/200ML 200 ML IV ONE (15:08)
--- NOTE | 2024-08-01 15:32 | DVH ---
Procedure: NM NM HIDA SCAN Exam Date: 08/01/2024 01:23 PM Clinical History: R/O acalculus cholecystitis Comparison Study: None Nuclear Medicine Hepatobiliary Scan. Technique: Following the intravenous administration of 6.5 mCi of technetium 99m labeled Choletec multiple plana r abdominal planar images were obtained in anterior projection in 3 minute intervals for45 minutes . Right lateral images were obtained at 45 minutes after injection. Findings: The liver appears grossly normal in size. There is no abnormal persistence of the cardiac or blood po ol activity. There is prompt visualization of the gallbladder and excretion of activity into the smal l bowel. Impression: 1. Unremarkable hepatobiliary study without evidence of acute cholecystitis.
[2024-08-01] MEDS ORDERED: IOHEXOL 300 MG/ML 100ML BOTTLE IJ ONE (15:51)
--- NOTE | 2024-08-01 16:24 | DVH ---
EXAM: CT Abdomen and Pelvis With Intravenous Contrast CLINICAL INDICATION: Left hydronephrosis TECHNIQUE: Axial computed tomography images of the abdomen and pelvis with intravenous contrast. Th is CT exam was performed using one or more of the following dose reduction techniques: automated exp osure control, adjustment of the mA and/or kV according to patient size, and/or use of iterative rosas nstruction technique. CONTRAST: RADIATION DOSE: CTDIvol = 10.17 mGy, DLP = 584.26 mGy-cm COMPARISON: No relevant prior studies available. FINDINGS: LUNG BASES: Unremarkable. No mass. No consolidation. ABDOMEN: LIVER: Fatty infiltration of the liver. GALLBLADDER AND BILE DUCTS: Unremarkable. No calcified stones. No ductal dilation. PANCREAS: Unremarkable. No mass. No ductal dilation. SPLEEN: Unremarkable. No splenomegaly. ADRENALS: Unremarkable. No mass. KIDNEYS AND URETERS: Moderate left hydroureteronephrosis without obstructing calculus. STOMACH AND BOWEL: Fecal retention in the colon consistent with constipation. No obstruction. No mucosal thickening. PELVIS: APPENDIX: No findings to suggest acute appendicitis. BLADDER: Unremarkable. No mass. REPRODUCTIVE: The prostate gland is enlarged measuring 5.5 cm in maximum dimension. ABDOMEN and PELVIS: INTRAPERITONEAL SPACE: Unremarkable. No free air. No significant fluid collection. BONES/JOINTS: No acute fracture. No dislocation. SOFT TISSUES: Unremarkable. VASCULATURE: Unremarkable. No abdominal aortic aneurysm. LYMPH NODES: Unremarkable. No enlarged lymph nodes. OTHER FINDINGS: Comparison None. . IMPRESSION: 1. Moderate left hydroureteronephrosis without obstructing calculus. 2. The prostate gland is enlarged. Correlation with PSA values may be helpful if not previously per formed. 3. Fecal retention in the colon consistent with constipation. HS:Y
--- NOTE | 2024-08-01 17:45 | DVH ---
Procedure: US BLADDER Study Date and Requested Time: 08/01/2024 05:26 PM Study Description: US BLADDER History: look for left ureteral jetting for left hydronephrosis Comparison: CT abdomen and pelvis 08/01/2024 Technique: Multiple transabdominal high resolution bone-scale images obtained of the urinary bladder with color Doppler for evaluation of adnexal blood flow and vascularity as indicated. Findings: Urinary bladder is unremarkable. Bilateral ureteral jets are visualized. Urinary bladder volume of 4 08 cc. Prostate is enlarged measuring 6.8 x 5.9 x 9.2 cm with prostatic volume of 191.9 cc. Possible calcifi cation seen within the prostate. Impression: Urinary bladder is unremarkable with bilateral ureteral jets visualized. Urinary bladder volume of 40 8 cc. Enlarged heterogeneous prostate. Recommend correlation with PSA.
[2024-08-02] VITALS (7 sets, daily range): BP systolic 129–160; BP diastolic 81–92; PULSE 79–86; RESP 16–20; TEMP 97.6–98.6; O2SAT 94–99
--- NOTE | 2024-08-02 09:48 | DVHPN2 ---
Progress Note - Dictate Date Seen: Aug 02, 2024 Has the PT tested + for MRSA If YES, has PT been informed?: No Medical Necessity Reason Pt with a Central, PICC or Fol: No Medical Necessity Reason Left hydronephrosis likely to be secondary to BPH and not from a urolithiasis. Bladder ultrasound shows bilateral ureteral jetting and a prostate gland size of 193 cc Subjective No flank pain vital signs Vital Sign Date Time Temp Pulse Resp B/P (MAP) Pulse Ox O2 Delivery O2 Flow Rate FiO2 08/02/24 05:00 97.9 82 18 129/81 (97) 96 97.9 08/01/24 20:00 Room Air* 0 21 Total Intake and Output 08/01/24 08/01/24 08/02/24 15:00 23:00 07:00 Intake Total 50 ml 360 ml 800 ml Output Total 2 ml Balance 50 ml 360 ml 798 ml medications Current Medications Medications Dose Ordered Sig/Patricia Route Start Time Stop Time Status Last Admin Dose Admin Nitroglycerin 0.4 mg Q5MINP PRN SL 07/30/24 21:00 Morphine Sulfate 2 mg Q30M PRN IV 07/30/24 21:00 Diagnostic Test (Pha) 1 strip ACHS 07/30/24 22:00 08/02/24 06:24 1 STRIP Hydromorphone HCl 0.8 mg Q4HP PRN IV 07/30/24 21:30 08/01/24 20:37 0.8 MG Hydromorphone HCl 0.5 mg Q4HP PRN IV 07/30/24 21:30 08/01/24 01:50 0.5 MG Cefepime HCl 50 ml @ 12.5 mls/hr Q12HR IV 07/30/24 22:00 08/01/24 21:57 12.5 MLS/HR Al Hydrox/Mg Hydrox/Simethicone 30 ml Q4HP PRN GT 07/30/24 21:30 Sodium Chloride 1,000 ml @ 60 mls/hr [id number] IV 07/30/24 21:30 08/02/24 00:00 60 MLS/HR Ondansetron HCl 4 mg Q6HPRN PRN IV 07/30/24 21:45 Zolpidem Tartrate 10 mg HSPRN PRN PO 07/30/24 21:45 08/01/24 21:57 10 MG Insulin Human Lispro AC SC 08/01/24 11:30 08/02/24 06:23 2 UNITS Insulin Human Lispro HS SC 08/01/24 22:00 08/01/24 22:38 6 UNITS Valsartan 160 mg DAILY PO 08/02/24 10:00 objective PATIENT: AUSTYN CLEMENTS ACCT: [id number] UNIT: [id number] : 1970 LOC: [facility] ROOM / BED: [facility] / B AGE / SEX: 54 / M ADM STATUS: ADM IN SERVICE 0725 ORDERING PHYSICIAN: FROILAN MORALES MD PROCEDURE(s): BLDR - BLADDER REASON: look for left ureteral jetting for left hydronephrosis ORDER NUMBER(s): [id number], ACCESSION NUMBER(s): [id number] Procedure: US BLADDER Study Date and Requested Time: 08/01/2024 05:26 PM Study Description: US BLADDER History: look for left ureteral jetting for left hydronephrosis Comparison: CT abdomen and pelvis 08/01/2024 Technique: Multiple transabdominal high resolution bone-scale images obtained of the urinary bladder with color Doppler for evaluation of adnexal blood flow and vascularity as indicated. Findings: Urinary bladder is unremarkable. Bilateral ureteral jets are visualized. Urinary bladder volume of 408 cc. Prostate is enlarged measuring 6.8 x 5.9 x 9.2 cm with prostatic volume of 191.9 cc. Possible calcification seen within the prostate. Impression: Urinary bladder is unremarkable with bilateral ureteral jets visualized. Urinary bladder volume of 408 cc. Enlarged heterogeneous prostate. Recommend correlation with PSA. ATED BY: ENID LAWRENCE DO DICTATED DATE/TIME: 08/01/241742 SIGNED BY: ENID LAWRENCE DO SIGNED DATE/TIME: 08/01/241742 CC: laboratory and microbiology Laboratory Tests 08/01/24 11:58 Test 08/01/24 11:58 Range/Units Serum Glucose 211 #H 74-106 mg/dL Problem List Enlarged prostate gland 192 g with heterogeneity on ultrasound Left hydronephrosis nonobstructive Assessment/Plan Recommend outpatient evaluation and management of enlargement of the prostate We will obtain PSA level Start Flomax and Proscar as indicated Plan discussed with: Patient, Spouse FROILAN MORALES MD Aug 02, 2024 09:48
[2024-08-02] MEDS: VALSARTAN 80 MG TAB PO SCH (10:06)
[2024-08-02] MEDS: FINASTERIDE 5 MG TAB PO SCH (10:06)
[2024-08-02] MEDS: TAMSULOSIN HYDROCHLORIDE 0.4 MG CAP PO ONE (10:33)
[2024-08-02 10:44] LABS: Alanine Aminotransferase 24 U/L (7-40); Albumin 4.5 g/dL (3.2-4.8); Alkaline Phosphatase 53 U/L (46-116); Anion Gap 8 (5-15); Aspartate Aminotransferase 28 U/L (<34); BUN/Creatinine Ratio 17.5 (10.0-20.0); Blood Urea Nitrogen 17 mg/dL (9-23); Carbon Dioxide 26 mmol/L (20-31); Chloride 103 mmol/L (98-107); Potassium 4.6 mmol/L (3.5-5.1); Sodium 137 mmol/L (136-145); Total Protein 6.8 g/dL (5.7-8.2)
[2024-08-02 10:47] LABS: Glucose 207 mg/dL (74-106)
[2024-08-02 10:51] LABS: Bilirubin, Total 0.5 mg/dL (0.2-1.0)
[2024-08-02] MEDS ORDERED: TAMS-35 PO (16:19)
[2024-08-02] MEDS ORDERED: FIN5T PO ×2 (16:19→16:24)
[2024-08-02] MEDS ORDERED: VALS1TAB58 PO (16:19)
[2024-08-02] MEDS ORDERED: INSU100I51 SC (16:19)
[2024-08-02] MEDS ORDERED: ASPI1TAB59 PO (16:19)
[2024-08-02] MEDS ORDERED: INSLANTI SC ×2 (16:21→16:24)
--- NOTE | 2024-08-02 16:29 | DVHPN2 ---
Progress Note - Dictate Date Seen: Aug 02, 2024 Has the PT tested + for MRSA If YES, has PT been informed?: No Medical Necessity Reason Pt with a Central, PICC or Fol: No Subjective CT abdomen- BPH HIda- ruled out acalculus cholecystitis Bladder US- BPH DR Starr cleared patient for discharge vital signs Vital Sign Date Time Temp Pulse Resp B/P (MAP) Pulse Ox O2 Delivery O2 Flow Rate FiO2 08/02/24 13:00 98.3 80 20 141/89 (106) 99 98.3 08/02/24 08:00 Room Air* 0 21 Total Intake and Output 08/01/24 08/01/24 08/02/24 15:00 23:00 07:00 Intake Total 50 ml 360 ml 800 ml Output Total 2 ml Balance 50 ml 360 ml 798 ml medications Current Medications Medications Dose Ordered Sig/Patricia Route Start Time Stop Time Status Last Admin Dose Admin Nitroglycerin 0.4 mg Q5MINP PRN SL 07/30/24 21:00 Diagnostic Test (Pha) 1 strip ACHS 07/30/24 22:00 08/02/24 11:48 1 STRIP Hydromorphone HCl 0.8 mg Q4HP PRN IV 07/30/24 21:30 08/01/24 20:37 0.8 MG Hydromorphone HCl 0.5 mg Q4HP PRN IV 07/30/24 21:30 08/02/24 10:34 0.5 MG Al Hydrox/Mg Hydrox/Simethicone 30 ml Q4HP PRN GT 07/30/24 21:30 Sodium Chloride 1,000 ml @ 60 mls/hr [id number] IV 07/30/24 21:30 08/02/24 00:00 60 MLS/HR Ondansetron HCl 4 mg Q6HPRN PRN IV 07/30/24 21:45 Zolpidem Tartrate 10 mg HSPRN PRN PO 07/30/24 21:45 08/01/24 21:57 10 MG Insulin Human Lispro AC SC 08/01/24 11:30 08/02/24 11:49 4 UNITS Insulin Human Lispro HS SC 08/01/24 22:00 08/01/24 22:38 6 UNITS Valsartan 160 mg DAILY PO 08/02/24 10:00 08/02/24 10:06 160 MG Finasteride 5 mg DAILY PO 08/02/24 10:00 08/02/24 10:06 5 MG Tamsulosin HCl 0.4 mg QPM PO 08/02/24 18:00 laboratory and microbiology Laboratory Tests 08/02/24 10:15 08/01/24 11:58 Test 08/02/24 10:15 Range/Units Serum Glucose 207 H 74-106 mg/dL Problem List L sided nonobstructive hydronephrosis Gastroparesis Fairly well controlled NIDDM Assessment/Plan Refer to Dr. Larry starr- d/w Ms ARIADNA Paulino MD Aug 02, 2024 16:08
--- NOTE | 2024-08-02 16:30 | DVHDS2 ---
Discharge Summary Date of Admission Jul 30, 2024 at 19:54 Date of Discharge: Aug 02, 2024 Admitting Diagnosis RUQ abdominal pains Suspect acute cholecystitis Fairly well controlled NIDDM Labs/Diagnostic Data: Laboratory Results Test 08/02/24 10:15 08/02/24 06:13 08/01/24 11:58 08/01/24 08:45 Sodium Level 137 mmol/L (136-145) Potassium Level 4.6 mmol/L (3.5-5.1) Chloride Level 103 mmol/L (98-107) Carbon Dioxide Level 26 mmol/L (20-31) Anion Gap 8 (5-15) Blood Urea Nitrogen 17 mg/dL (9-23) Creatinine 0.97 mg/dL (0.700-1.30) Glomerular Filtration Rate Calc 92 mL/min (>90) BUN/Creatinine Ratio 17.5 (10.0-20.0) Serum Glucose 207 mg/dL (74-106) Calcium Level 10.0 mg/dL (8.7-10.4) Total Bilirubin 0.5 mg/dL (0.2-1.0) Aspartate Amino Transferase (AST) 28 U/L (<34) Alanine Aminotransferase (ALT) 24 U/L (7-40) Alkaline Phosphatase 53 U/L (46-116) Total Protein 6.8 g/dL (5.7-8.2) Albumin 4.5 g/dL (3.2-4.8) POC Glucose 152 mg/dl (70-106) White Blood Count 5.4 10^3/uL (4.4-10.8) Red Blood Count 6.62 10^6/uL (4.5-5.90) Hemoglobin 13.3 g/dL (13.5-17.5) Hematocrit 42.1 % (41.0-53.0) Mean Corpuscular Volume 63.7 fL (80.0-100.0) Mean Corpuscular Hemoglobin 20.2 pg (28.0-32.0) Mean Corpuscular Hemoglobin Concent 31.7 g/dL (32.0-36.0) Red Cell Distribution Width 16.2 % (11.8-14.3) Platelet Count 230 10^3/uL (140-450) Mean Platelet Volume 8.4 fL (6.9-10.8) Neutrophils (%) (Auto) 58.2 % (37.0-80.0) Lymphocytes (%) (Auto) 32.4 % (10.0-50.0) Monocytes (%) (Auto) 7.8 % (0.0-12.0) Eosinophils (%) (Auto) 1.0 % (0.0-7.0) Basophils (%) (Auto) 0.6 % (0.0-2.0) Neutrophils # (Auto) 3.1 10 ^3/uL (1.6-8.6) Lymphocytes # (Auto) 1.7 10 ^3/uL (0.4-5.4) Monocytes # (Auto) 0.4 10 ^3/uL (0-1.3) Eosinophils # (Auto) 0.1 10 ^3/uL (0-0.8) Basophils # (Auto) 0 10 ^3/uL (0-0.2) Nucleated Red Blood Cells 0.0 % Prothrombin Time 12.0 sec (9.3-11.8) Prothrombin Time INR 1.15 (0.9-1.15) Activated Partial Thromboplast Time 28.9 SEC (24.5-34.5) Stool Occult Blood Negative (Negative) Stool Occult Blood Sample #3 (Negative) Test 07/31/24 07:40 07/31/24 05:38 07/31/24 00:56 07/30/24 21:41 Urine Color Yellow (Yellow) Urine Clarity Clear (Clear) Urine pH 7.0 (5.0-9.0) Urine Specific [place] 1.022 (1.001-1.035) Urine Protein Negative (Negative) Urine Ketones Negative (Negative) Urine Blood Negative /uL (Negative) Urine Nitrite Negative (Negative) Urine Bilirubin Negative (Negative) Urine Urobilinogen Normal mg/dL (Negative) Urine Leukocyte Esterase Negative /uL (Negative) Urine RBC None seen /hpf (0 - 3) Urine Microscopic WBC /HPF (0-3) Urine Squamous Epithelial Cells Few /hpf (<5) Urine Bacteria None seen /hpf (None Seen) Urine Glucose 4+ mg/dL (Normal) Triglycerides Level 76 mg/dL (< 150) Cholesterol Level 100 mg/dL (< 200) LDL Cholesterol 58 mg/dL (< 100) HDL Cholesterol 26 mg/dL (40-59) Troponin I High Sensitivity 3 ng/L (</=54) D-Dimer, Quantitative < 0.19 mg/L FEU (0.0-0.49) Hemoglobin A1c 6.9 % A1C (<5.7) Phosphorus Level 4.2 mg/dL (2.4-5.1) Magnesium Level 2.3 mg/dL (1.6-2.6) Amylase Level 64 U/L (30-118) Lipase 14 U/L (12-53) Other Laboratory Tests 08/02/24 10:15 08/01/24 11:58 Final Diagnosis/Problems List L sided nonobstructive hydronephrosis Gastroparesis Fairly well controlled NIDDM RUQ abdominal pains Discharge Disposition: Home Discharge Instruct/Medications Diet: Consistent carbohydrate, Cardiac 2g Na,low cholest Diet comment: 1800 terrie Low Na 2 g, low choleterol diet with plenty of fluids Activity: No Restrictions, As Tolerated Follow Up/Referral: Dr. Dorothea Tavares in 5 days by August 06 Medications: as per D/S Med rec Discharge Statement: "Patient was advised to return to the ER or call 911 if any headaches, dizziness, shortness of breath, chest pain, abdominal pain, bleeding, fevers, or worsening of medical condition. Patient was counseled about treatment plan, medications, possible side effects, patientverbalized understanding. All questions were answered to the best of my ability. This discharge took greater then 30 minutes in planning, reviewing documentation, counseling the patient, and discussing with other team members." ASSESSMENT ASSESSMENT Assessment L sided nonobstructive hydronephrosis Gastroparesis Fairly well controlled NIDDM RUQ abdominal pains ARIADNA TAVARES MD Aug 02, 2024 16:30
[2024-08-02] MEDS ORDERED: TAMSULOSIN HYDROCHLORIDE 0.4 MG CAP PO SCH (18:00)
[2024-08-03 08:07] LABS: Prostate Specific Antigen 0.7 ng/mL (0.0-4.0)
[2024-08-03 13:07] LABS: PSA Free 0.3 ng/mL
== END 2024-08-02 17:40 | disposition home or self-care (01) | DRG 74 ==
LOC: OVERFLOW 19:54 → CENTRAL 20:14 → TELE-CENTR 07-31 02:59
PROVIDERS: ADMIT Specialist; ATTEND Specialist
PROC: 0DB68ZX Excision of Stomach, Via Natural or Artificial Opening Endoscopic, Diagnostic (ICD-10-PCS; 2024-07-31)
PROC: 0DB58ZX Excision of Esophagus, Via Natural or Artificial Opening Endoscopic, Diagnostic (ICD-10-PCS; 2024-07-31)
PROC: 0DB78ZX Excision of Stomach, Pylorus, Via Natural or Artificial Opening Endoscopic, Diagnostic (ICD-10-PCS; 2024-07-31)
PROC: 0DB98ZX Excision of Duodenum, Via Natural or Artificial Opening Endoscopic, Diagnostic (ICD-10-PCS; principal; 2024-07-31 09:25)
DX: E11.43 Type 2 diabetes mellitus with diabetic autonomic (poly)neuropathy (principal); N13.1 Hydronephrosis with ureteral stricture, not elsewhere classified; N20.1 Calculus of ureter; K31.84 Gastroparesis; K44.9 Diaphragmatic hernia without obstruction or gangrene; T18.2XXA Foreign body in stomach, initial encounter; W44.F1XA Bezoar entering into or through a natural orifice, initial encounter; K20.90 Esophagitis, unspecified without bleeding; K29.70 Gastritis, unspecified, without bleeding; N40.0 Benign prostatic hyperplasia without lower urinary tract symptoms; Z79.84 Long term (current) use of oral hypoglycemic drugs; Z79.899 Other long term (current) drug therapy; Y93.89 Activity, other specified; Y92.89 Other specified places as the place of occurrence of the external cause; Y99.8 Other external cause status
CPT/HCPCS: 36415; 43239; 71101; 74176; 74177; 74181; 76705; 76857; 78226; 80053; 80061; 81001; 82150; 82270; 82962; 83036; 83690; 83735; 84100; 84154; 84484; 85025; 85379; 85610; 85730; G0378; J1815; J2250; J2470